=== PATIENT | female | born 1990 | race American Indian/Alaskan Native ===

== ENCOUNTER 2018-01-28 18:25 | Emergency (ER) | payer SELFPAY ==
[2018-01-28 18:38] VITALS: BP 137/90; PULSE 77; RESP 18; TEMP 98.7; O2SAT 100
--- NOTE | 2018-01-28 19:26 | C.PDOC ---
History Of Present Illness 27 year old female presents to ED with complaints of cough and congestion for 2 weeks. She reports cough is worsening and now productive of yellow sputum. Denies fever, chest pain, SOB. Time Seen by Provider: 01/28/18 19:11 Chief Complaint (Nursing): Cough, Cold, Congestion History Per: Patient History/Exam Limitations: no limitations Onset/Duration Of Symptoms: Other (two weeks) Current Symptoms Are (Timing): Worse Associated Symptoms: Cough, Sputum (yellow). denies: Fever, Other (chest pain, SOB) Past Medical History Reviewed: Historical Data, Nursing Documentation, Vital Signs Vital Signs: Last Vital Signs Temp 98.7 F 01/28/18 18:36 Pulse 77 01/28/18 18:36 Resp 18 01/28/18 18:36 BP 137/90 01/28/18 18:36 Pulse Ox 100 01/28/18 21:05 - Medical History PMH: No Chronic Diseases Surgical History: No Surg Hx Family History: States: No Known Family Hx - Social History Hx Tobacco Use: No Hx Alcohol Use: Yes Hx Substance Use: No - Immunization History Hx Tetanus Toxoid Vaccination: No Hx Influenza Vaccination: No Hx Pneumococcal Vaccination: No Review Of Systems Constitutional: Negative for: Fever Cardiovascular: Negative for: Chest Pain Respiratory: Positive for: Cough, Sputum (yellow). Negative for: Shortness of Breath Physical Exam - Physical Exam Appears: Well, Non-toxic, No Acute Distress Skin: Warm, Dry, No Rash Head: Atraumatic, Normacephalic Eye(s): bilateral: Normal Inspection, EOMI Nose: Normal, No Flaring, No Discharge Oral Mucosa: Moist Neck: Normal ROM Chest: Symmetrical Cardiovascular: Rhythm Regular, No Murmur Respiratory: Normal Breath Sounds, No Rales, No Rhonchi, No Wheezing Gastrointestinal/Abdominal: Bowel Sounds (active), Soft, No Tenderness, No Guarding, No Rebound Extremity: Bilateral: Atraumatic, Normal Color And Temperature, Normal ROM Neurological/Psych: Oriented x3, Normal Speech Gait: Steady ED Course And Treatment O2 Sat by Pulse Oximetry: 100 (RA) Pulse Ox Interpretation: Normal Medical Decision Making Medical Decision Making: Patient remained afebrile alert and oriented with stable vital signs during ER evaluation. Patient has no signs of distress. Lungs clear bilaterally with good air entry. Will treat with Z-pack. Advise follow up in the clinic. Instructed to return to ER if symptoms worsen or new symptoms arise. Disposition Counseled Patient/Family Regarding: Diagnosis, Need For Followup, Rx Given - Disposition Referrals: Emy Bliss MD [Staff Provider] - Disposition: HOME/ ROUTINE Disposition Time: 19:25 Condition: GOOD Additional Instructions: You have upper respiratory infection. Take Tylenol or Motrin alternating every 4 -6 hours for Fever 100.4F or higher. Rest and drink plenty of fluids. May use cool mist humidifier or vaporizer in room. Cough medicine as needed every 6-8 hours. Follow up with your primary medical doctor or clinic in 1 week for further evaluation. Prescriptions: Azithromycin [Zithromax] 250 mg PO DAILY #6 tab Promethazine DM [Phenergan DM Syrup] 5 ml PO Q8 PRN #3 oz PRN Reason: Cough Instructions: Upper Respiratory Infection (ED) Forms: [facility] (Lebanese) - POA Present On Arrival: None - Clinical Impression Clinical Impression: Upper respiratory infection - PA / CHARACTER IMPERSONATOR / Resident Statement MD/DO has reviewed & agrees with the documentation as recorded. - Scribe Statement The provider has reviewed the documentation as recorded by the Scribe (Ricardo Nazario) All medical record entries made by the Scribe were at my direction and personally dictated by me. I have reviewed the chart and agree that the record accurately reflects my personal performance of the history, physical exam, medical decision making, and the department course for this patient. I have also personally directed, reviewed, and agree with the discharge instructions and disposition.
== END 2018-01-28 19:43 | disposition home or self-care (01) ==
LOC: C.ER 18:25
DX: J06.9 Acute upper respiratory infection, unspecified (principal)